=== PATIENT | female | born 1980 | race Caucasian/White ===

== ENCOUNTER 2022-06-29 15:58 | Emergency (ER) | payer OTHER, SELFPAY ==
[2022-06-29 16:04] VITALS: BP 137/88; PULSE 98; RESP 18; TEMP 36.9; O2SAT 100; BMI 20.4
[2022-06-29 17:16] LABS: Basophils Absolute Auto 0.02 K/uL (0.00-0.30); Basophils Percent Auto 0.4 % (0.0-3.0); Eosinophils Absolute Auto 0.08 K/uL (0.00-0.50); Eosinophils Percent Auto 1.7 % (0.0-7.0); Hematocrit 35.2 % (33.0-51.0); Hemoglobin* 12.1 gm/dL (12.0-16.0); Lymphocytes Absolute Auto 1.53 K/uL (0.90-2.90); Lymphocytes Percent Auto 31.7 % (20-44); Mean Corpuscular HGB Conc 34 gm/dL (32-36); Mean Corpuscular Hemoglobin 31 pg (26-34); Mean Corpuscular Volume 91 fL (80-100); Monocytes Percent Auto 9.9 % (0.0-11.0); Neutrophils Absolute Auto 2.72 K/uL (1.7-7.0); Neutrophils Percent Auto 56.3 % (42.0-72.0); Platelet Count* 187 K/uL (140-440); RDW Coefficient of Variation % 11.9 % (11.5-15.5); Red Blood Count 3.87 m/uL (4.00-5.20); White Blood Count* 4.83 K/uL (4.50-11.00)
[2022-06-29] MEDS: ONDANSETRON 2 MG/ML inj 4 MG IVP (17:16)
[2022-06-29] MEDS: 0.9 % SODIUM CHLORIDE 1000 ml 1,000 ML IV (17:16)
[2022-06-29 17:21] LABS: Slide Review Reflex No
[2022-06-29 17:45] LABS: Chloride* 106 mmol/L (96-114); Sodium* 136 mmol/L (135-149)
[2022-06-29 17:46] LABS: Potassium* 3.4 mmol/L (3.6-5.1)
[2022-06-29 17:48] LABS: Carbon Dioxide* 23 mmol/L (20-32); Creatinine* 0.5 mg/dL (0.5-1.5); Est. Creatinine Clearance* 140.62; Estimated Glomerular Filt Rate 122 ml/min
[2022-06-29 17:49] LABS: Blood Urea Nitrogen* 16 mg/dL (5-24); Calcium* 8.4 mg/dL (8.4-10.6); Glucose* 94 mg/dL (60-115)
[2022-06-29 18:01] LABS: Erythrocyte SedimentationRate* 6 mm/hr (2-20)
--- NOTE | 2022-06-29 18:17 | ED.GENADULT ---
HPI - General Adult General Chief complaint: Chest Pain Stated complaint: Chest pain Time Seen by Provider: 06/29/22 16:31 History of Present Illness HPI narrative: This 41-year-old female comes in reporting some intermittent chest discomfort in the left upper chest radiating toward her left shoulder. This is been present over the past day or 2. She does not report any particular injury event except that she did have 2 episodes of vomiting 3 days ago. She states that she had some chills and sweating episodes related to this with nausea at that time. Her nausea has persisted but she has not been vomiting. She does not describe any lightheadedness, shortness of breath, diaphoresis, or exercise intolerance. She states that she did exercise yesterday as she normally does. Related Data Home Medications Medication Instructions Recorded Confirmed acetaminophen 300 mg-codeine 30 mg 1 tab PO 04/08/22 05/05/22 tablet flwjwllooa-gvbgptgjzazps-ueeqptwu 1 tab PO 04/08/22 05/05/22 50 mg-325 mg-40 mg tablet gabapentin 100 mg capsule 100 mg PO 04/08/22 05/05/22 tizanidine 4 mg tablet 4 mg PO 04/08/22 05/05/22 amoxicillin 875 mg tablet 875 mg PO 05/05/22 05/05/22 Previous Rx's Medication Instructions Recorded ondansetron HCl 4 mg tablet 4 mg PO Q6H #20 tabs 06/29/22 Allergies Allergy/AdvReac Type Severity Reaction Status Date / Time No Known Drug Allergies Allergy Verified 06/29/22 16:06 Review of Systems Status of ROS: Reports: 10 or more systems reviewed and unremarkable except as noted in History and below Narrative: Constitutional: No fevers, no weight gain or loss. Eyes: No discharge. No vision changes. HENT: No congestion, no sore throat, no ear pain. Cardiovascular: No palpitations. Respiratory: No shortness of breath, no wheezes, no cough. Gastrointestinal: No abdominal pain, no diarrhea. Vomiting 3 days ago with persistent nausea since then. Genitourinary: No dysuria, no hematuria. Musculoskeletal: Normal range of motion. Skin: No rashes, no pruritis. Neurological: No dizziness, weakness, sensory change, speech change. Endo/Heme/Allergies: No bruising or bleeding. No polydipsia. Pysch: no suicidality, no anxiety, no insomnia. All other systems reviewed and are negative. [facility] Medical History (Updated 06/29/22 @ 18:22 by Jose Carlos Adam MD) Strep throat ?J02.0 - Streptococcal pharyngitis (ICD-10) Social History Smoking Status: Never smoker Do you use any of these nicotine containing products: None Second hand tobacco smoke exposure: No How often do you have a drink containing alcohol: never How often do you have six or more drinks on one occasion: Never AUDIT-C Alcohol total score: 0 Non-prescribed substance use: denies use service: No Exam Narrative: Exam Narrative: Constitutional: Well-developed, well-nourished, no acute distress. HEENT: Normocephalic, atraumatic. Neck: Normal range of motion. Nontender. Supple. Heart: Regular. No murmurs. Normal rate. Intact distal pulses. Lungs: Clear to auscultation. Mild chest discomfort in the left upper anterior chest wall. No wheezes, rhonchi, or rales. Abdomen: Normal bowel sounds. Nontender. No rebound tenderness. Genitalia: Deferred. Back: No midline tenderness. Normal range of motion. Extremities: Normal range of motion. No injury. Skin: Intact. No rash. Warm. No erythema or pallor. Neurologic: No altered sensation. No weakness. Alert and oriented. Psychiatric: No suicidality. No anxiety or depression. No insomnia. Nursing notes and vitals signs are reviewed. Const: Vital Signs, click to edit/add: Vital Signs - 24 hr 06/29/22 16:04 Temperature 98.5 F Pulse Rate [Pulse Oximeter] 98 Respiratory Rate 18 Blood Pressure [Ri ght Upper Arm] 137/88 Pulse Oximetry 100 Oxygen Delivery Me thod Room Air Course Vital Signs Vital signs: Initial Vital Signs Temperature 98.5 F 06/29/22 16:04 Temperature Source Temporal Artery Scan 06/29/22 16:04 Pulse Rate 98 06/29/22 16:04 Pulse Rhythm Regular 06/29/22 16:04 Pulse Strength 3+ Normal 06/29/22 16:04 Respiratory Rate 18 06/29/22 16:04 Blood Pressure 137/88 06/29/22 16:04 Blood Pressure Mean 104 06/29/22 16:04 Blood Pressure Position Sitting 06/29/22 16:04 Pulse Oximetry 100 06/29/22 16:04 Oxygen Delivery Method Room Air 06/29/22 16:04 Vital Signs Temperature 98.5 F 06/29/22 16:04 Pulse Rate 98 06/29/22 16:04 Respiratory Rate 18 06/29/22 16:04 Blood Pressure 137/88 06/29/22 16:04 Pulse Oximetry 100 06/29/22 16:04 Oxygen Delivery Method Room Air 06/29/22 16:04 Temperature 98.5 F 06/29/22 16:04 Pulse Rate 98 06/29/22 16:04 Respiratory Rate 18 06/29/22 16:04 Blood Pressure 137/88 06/29/22 16:04 Pulse Oximetry 100 06/29/22 16:04 Oxygen Delivery Method Room Air 06/29/22 16:04 Medical Decision Making MDM Narrative Medical decision making narrative: This patient received an IV with a L of normal saline and 4 mg of Zofran. This brought great relief of her nausea symptoms. Lab results returned with reassuring findings. This patient has chest discomfort is likely chest wall pain. Her EKG and troponin returned with normal findings. She is okay to be discharged home and received a prescription for Zofran. Lab Data Labs: Lab Results 06/29/22 06/29/22 Range/Units 16:57 17:10 WBC 4.83 (4.50-11.00) K/uL RBC 3.87 L (4.00-5.20) m/uL Hgb 12.1 (12.0-16.0) gm/dL Hct 35.2 (33.0-51.0) % MCV 91 (80-100) fL MCH 31 (26-34) pg MCHC 34 (32-36) gm/dL RDW Coeff of Giovanny 11.9 (11.5-15.5) % Plt Count 187 (140-440) K/uL Neut % (Auto) 56.3 (42.0-72.0) % Lymph % (Auto) 31.7 (20-44) % Starke % (Auto) 9.9 (0.0-11.0) % Eos % (Auto) 1.7 (0.0-7.0) % Baso % (Auto) 0.4 (0.0-3.0) % Neut # (Auto) 2.72 (1.7-7.0) K/uL Lymph # (Auto) 1.53 (0.90-2.90) K/uL Starke # (Auto) 0.50 (0.00-0.90) K/UL Eos # (Auto) 0.08 (0.00-0.50) K/uL Baso # (Auto) 0.02 (0.00-0.30) K/uL ESR 6 (2-20) mm/hr Sodium 136 (135-149) mmol/L Potassium 3.4 L (3.6-5.1) mmol/L Chloride 106 (96-114) mmol/L Carbon Dioxide 23 (20-32) mmol/L BUN 16 (5-24) mg/dL Creatinine 0.5 (0.5-1.5) mg/dL Estimated Creat Clear 140.62 Estimated GFR 122 ml/min Glucose 94 (60-115) mg/dL Calcium 8.4 (8.4-10.6) mg/dL POC Troponin I 0.00 L (0.01-0.04) ng/ml Discharge Plan Discharge Clinical Impression: Acute chest wall pain, Nausea Patient Disposition: Home, Self-Care Condition: Improved Additional Instructions: Take medication as needed and indicated. Increase diet as tolerated. Follow up with MD or return if worsening. Prescriptions: New ondansetron HCl 4 mg tablet 4 mg PO Q6H Qty: 20 0RF No Action acetaminophen-codeine 300-30 mg tablet 1 tab PO uepjhsxcvv-cyrjthzwyepan-dgrc 50-325-40 mg tablet 1 tab PO Patient Comments: TAKE DIRECTED UP TO 6 DOSES PER DAY gabapentin 100 mg capsule 100 mg PO tizanidine 4 mg tablet 4 mg PO amoxicillin 875 mg tablet 875 mg PO Follow Up/Referrals: Jc Dove MD [Primary Care Provider] - Stand Alone Forms: [employer] Info Instructions
== END 2022-06-29 18:36 | disposition home or self-care (01) ==
PROVIDERS: Emergency Provider Emergency Medicine Emergency Medical Services; PCP Surgery
DX: R07.89 Other chest pain (principal); R11.0 Nausea
CPT/HCPCS: 36415; 80048; 84484; 85025; 85651; 93005; 96374; 99284; J2405; J7030